=== PATIENT | female | born 1965 | race Caucasian/White ===

== ENCOUNTER → 2017-05-20 | Day surgery (SDC) | payer BC ==
[2017-05-20 11:03] VITALS: RESP 16; BMI 25.2
[2017-05-20 12:38] VITALS: BP 124/76; PULSE 86; TEMP 98.2
--- NOTE | 2017-05-20 13:05 | USB ---
EXAMINATION TYPE: US breast aspiration single RT DATE OF EXAM: 05/20/2017 COMPARISON: 05/16/2017 CLINICAL HISTORY: R92.8 Abnormal Mammogram. Prior to the procedure informed consent and a formal timeout were performed. Localization of the complicated cystic mass at the 10:00 position in the right breast was performed as it measured 1.3 x 1.2 x 1.3 cm containing minimal internal echoes. The patient describes this as a painful area and aspiration was subsequently performed. The area was sterilely prepped and draped. 10 cc of lidocaine was utilized to anesthetize the skin and subcutaneous tissues up to the mass. An 18-gauge spinal needle was inserted into the cyst and a partially 2 cc of brownish thick fluid was aspirated with collapse of the cyst entirely. Post procedural marker clip was left at the site of aspiration. Sample was sent to pathology for analysis. Hemostasis was achieved and the patient tolerated the procedure well. IMPRESSION: Successful ultrasound-guided aspiration of collapse of a complicated right breast cyst with 2 cc of brown thick fluid sent to the laboratory for analysis. Pathology pending. Pathology Results: Benign BREAST, RIGHT, FINE NEEDLE ASPIRATE: PREDOMINANTLY ACUTE INFLAMMATORY CELLS WITH SCATTERED MACROPHAGES AND RARE APOCRINE CELLS. Recommendation Follow up ultrasound of the right breast in 6 months. EARNESTINED
== END ==
LOC: RADUSWWP 10:34
PROVIDERS: ATTEND Internal Medicine
DX: N60.01 Solitary cyst of right breast (principal); R92.8 Other abnormal and inconclusive findings on diagnostic imaging of breast
CPT/HCPCS: 19000; 88108; 88305; 76942; A4648; J2001

== ENCOUNTER 2019-05-10 13:32 | Emergency (ER) | payer BC ==
[2019-05-10] MEDS ORDERED: IPRATROPIUM-ALBUTEROL 3 ML NEB INHALATION STA (14:14)
--- NOTE | 2019-05-10 14:30 | ED ---
General Adult HPI - General Chief complaint: Upper Respiratory Infection Stated complaint: Cough, sore throat Time Seen by Provider: 05/10/19 13:38 Source: patient, RN notes reviewed Mode of arrival: ambulatory Limitations: no limitations - History of Present Illness Initial comments: 54-year-old female without any significant past medical history presents for cough. Patient has had a cough for about 2 days. States that yesterday she had a sore throat but that has improved. Today her cough is worsening and she feels short of breath. States she often gets bronchitis around this time. Saw her primary care provider who gave her a reading treatment and sent her to the emergency department for a chest x-ray. Patient does admit to mild shortness of breath with this. Denies any chest pain. Patient denies any COPD asthma or smoking history. Patient has no other complaints at this time including chest pain, abdominal pain, nausea or vomiting, headache, or visual changes. - Related Data Home Medications Medication Instructions Recorded Confirmed ALPRAZolam [Xanax] 1 tab PO HS 05/18/17 05/20/17 Lisdexamfetamine Dimesylate 1 tab PO DAILY 05/18/17 05/20/17 [Vyvanse] Previous Rx's Medication Instructions Recorded Albuterol Inhaler [Ventolin Hfa 1 - 2 puff INHALATION Q6HR PRN #1 05/10/19 Inhaler] inhaler Azithromycin [Zithromax Z-pack] 250 mg PO DIRECTED #6 tab 05/10/19 Benzonatate [Tessalon Perles] 200 mg PO Q8H PRN #15 capsule 05/10/19 predniSONE 50 mg PO DAILY #5 tablet 05/10/19 Allergies Allergy/AdvReac Type Severity Reaction Status Date / Time No Known Allergies Allergy Verified 05/10/19 13:35 Review of Systems ROS Statement: Those systems with pertinent positive or pertinent negative responses have been documented in the HPI. ROS Other: All systems not noted in ROS Statement are negative. Past Medical History Past Medical History: No Reported History History of Any Multi-Drug Resistant Organisms: None Reported Past Surgical History: Tubal Ligation Past Anesthesia/Blood Transfusion Reactions: No Reported Reaction Past Psychological History: No Psychological Hx Reported Smoking Status: Light tobacco smoker Past Alcohol Use History: Occasional Past Drug Use History: None Reported General Exam Limitations: no limitations General appearance: alert, in no apparent distress Head exam: Present: atraumatic, normocephalic, normal inspection Eye exam: Present: normal appearance, PERRL, EOMI. Absent: scleral icterus, conjunctival injection, periorbital swelling ENT exam: Present: normal exam, normal oropharynx, mucous membranes moist, TM's normal bilaterally, normal external ear exam Neck exam: Present: normal inspection, full ROM. Absent: tenderness, meningismus, lymphadenopathy Respiratory exam: Present: wheezes (mild wheezing), decreased breath sounds (diminished breath sounds). Absent: respiratory distress, rales, rhonchi, stridor Cardiovascular Exam: Present: regular rate, normal rhythm, normal heart sounds. Absent: systolic murmur, diastolic murmur, rubs, gallop, clicks Neurological exam: Present: alert, oriented X3 Psychiatric exam: Present: normal affect, normal mood Course Vital Signs 05/10/19 05/10/19 05/10/19 13:33 14:32 14:45 Temperature 97.4 F L Pulse Rate 89 85 80 Respiratory 22 Rate Blood Pressure 127/70 O2 Sat by Pulse 99 Oximetry Medical Decision Making - Medical Decision Making 54-year-old female without any significant past medical history and a surgical history of tubal ligation presents to the emergency department for a chief complaint of cough. Patient has had a cough for 2 days. States she usually gets bronchitis around this time. States she does feel somewhat short of breath as well. Denies any chest pain. Vitals are stable. Patient is 99% on room air within normal heart rate. On examination patient does have diminished lung sounds bilaterally with minimal wheezing. She is not in any respiratory distress but is noted to be coughing with a dry cough. Chest x-ray was obtained to evaluate for pneumonia which showed no acute process. Patient was given 2 breathing treatments here in the emergency department and did have some improvement of symptoms. Lung sounds have increased. At this time patient is stable to follow up outpatient. Patient will be given steroids to start tomorrow as she had IM injection of steroids at her primary care providers today. She will also be given azithromycin to cover for any atypical pneumonia developing as well as inhaler. Discussed that if she has worsening symptoms and is not improving she needs to return here to the emergency department. She does agree with this. Disposition Clinical Impression: Cough Disposition: ADMITTED IP TO THIS HOSP Condition: Good Instructions (If sedation given, give patient instructions): Upper Respiratory Infection (ED) Additional Instructions: Please take antibiotic, cough drops, and inhaler starting today. Take steroids starting tomorrow. If you're having worsening symptoms return immediately to the emergency department. Otherwise follow-up with primary care in 1-2 days. Prescriptions: predniSONE 50 mg PO DAILY #5 tablet Benzonatate [Tessalon Perles] 200 mg PO Q8H PRN #15 capsule PRN Reason: Cough Albuterol Inhaler [Ventolin Hfa Inhaler] 1 - 2 puff INHALATION Q6HR PRN #1 inhaler PRN Reason: Shortness Of Breath Azithromycin [Zithromax Z-pack] 250 mg PO DIRECTED #6 tab Is patient prescribed a controlled substance at d/c from ED?: No Referrals: Jayashree Howard MD [Primary Care Provider] - 1-2 days Time of Disposition: 15:23
--- NOTE | 2019-05-10 15:06 | XR ---
EXAMINATION TYPE: XR chest 2V DATE OF EXAM: 05/10/2019 COMPARISON: NONE TECHNIQUE: PA and lateral views submitted. HISTORY: Cough FINDINGS: The lungs are clear and there is no pneumothorax, pleural effusion, or focal pneumonia. No overt fa ilure. IMPRESSION: 1. No acute process.
[2019-05-10 15:44] VITALS: BP 104/67; PULSE 87; RESP 18; TEMP 100.7
== END 2019-05-10 15:44 | disposition other institution (70) ==
LOC: EC 13:32
DX: R05 Cough (principal); R06.02 Shortness of breath; R06.2 Wheezing; J98.4 Other disorders of lung; F17.210 Nicotine dependence, cigarettes, uncomplicated; Z98.51 Tubal ligation status
CPT/HCPCS: 71046; 94640; 99284

== ENCOUNTER → 2019-06-07 | Outpatient (CLI) | payer BC ==
--- NOTE | 2019-06-08 13:50 | MM ---
Reason for exam: screening (asymptomatic). Last mammogram was performed 2 years and 1 month ago. History: Patient is postmenopausal. Family history of breast cancer in maternal grandmother at age 68, breast cancer in aunt at age 68, and breast cancer in maternal cousin. Benign US breast aspiration single RT of the right breast, May 20, 2017. Took hormonal contraceptives for 10 years. Physical Findings: A clinical breast exam by your physician is recommended on an annual basis and results should be correlated with mammographic findings. MG 3D Screening Mammo W/Cad Bilateral CC and MLO view(s) were taken. Prior study comparison: May 16, 2017, bilateral MG 3d diag mammo w/cad [facility]. June 14, 2015, bilateral MG screening mammo w CAD. The breast tissue is heterogeneously dense. This may lower the sensitivity of mammography. Previous mammotome biopsy in the right breast. No significant changes when compared with prior studies. ASSESSMENT: Benign, BI-RAD 2 RECOMMENDATION: Routine screening mammogram of both breasts in 1 year.
== END | disposition home or self-care (01) ==
LOC: RADMAMWWP 13:16
PROVIDERS: ATTEND Internal Medicine
DX: Z12.31 Encounter for screening mammogram for malignant neoplasm of breast (principal)
CPT/HCPCS: 77063; 77067

== ENCOUNTER → 2022-03-25 | Outpatient (CLI) | payer BC ==
--- NOTE | 2022-03-26 07:27 | MM ---
Reason for Exam: Screening (asymptomatic). Last mammogram was performed 2 year(s) and 10 month(s) ago. Patient History: Menarche at age 12. First Full-Term at age 26. Postmenopausal. Patient used Hormonal Contraceptives for 10 years. 05/20/2017, Benign Cyst Aspiration on the right side. Maternal grandmother had breast cancer, age 68. Maternal cousin had breast cancer. Maternal aunt had breast cancer, age 68. Risk Values: Sheron 5 year model risk: 1.5%. NCI Lifetime model risk: 8.5%. Prior Study Comparison: 06/07/2012 Bilateral Screening Mammogram, [facility]. 06/14/2015 Bilateral Screening Mammogram, [facility]. 05/16/2017 Bilateral Diagnostic Mammogram, [facility]. 06/07/2019 Bilateral Screening Mammogram, [facility]. Tissue Density: The breast tissue is heterogeneously dense. This may lower the sensitivity of mammography. Findings: Analyzed By CAD. Stable mammotome biopsy clip in the right breast upper outer aspect. There is no suspicious group of microcalcifications or new suspicious mass in either breast. Overall Assessment: Benign, BI-RAD 2 Management: Screening Mammogram of both breasts in 1 year. A clinical breast exam by your physician is recommended on an annual basis and results should be correlated with mammographic findings. Electronically signed and approved by: Jake Franco M.D.
== END | disposition home or self-care (01) ==
LOC: RADMAMWWP 07:26
PROVIDERS: ATTEND Internal Medicine
DX: Z12.31 Encounter for screening mammogram for malignant neoplasm of breast (principal); Z78.0 Asymptomatic menopausal state; Z80.3 Family history of malignant neoplasm of breast
CPT/HCPCS: 77063; 77067

== ENCOUNTER 2023-08-03 12:27 | Emergency (ER) | payer BC ==
--- NOTE | 2023-08-03 12:46 | ED ---
General Adult HPI <Isac Wang - Last Filed: 08/03/23 12:46> <Jose Antonio Fleming - Last Filed: 08/25/23 21:25> - General Stated complaint: chest/back pain Time Seen by Provider: 08/03/23 12:45 - History of Present Illness Initial comments: 58-year-old female presents to the ED with a chief complaint of chest tightness. [place] at the airport while she was walking noticed some tightness around her chest. Since onset, reports worsening of this sensation. Patient denies being on hormones. Denies tobacco use. (Isac Wang) - Related Data Home Medications Medication Instructions Recorded Confirmed Lisdexamfetamine Dimesylate 50 mg PO DAILY 05/18/17 08/03/23 [Vyvanse] ALPRAZolam [Xanax] 0.25 - 0.5 mg PO BID PRN 08/03/23 08/03/23 Albuterol Inhaler [Ventolin Hfa 1 - 2 puff INHALATION RT-Q6H PRN 08/03/23 08/03/23 Inhaler] buPROPion XL [Wellbutrin XL] 150 mg PO DAILY 08/03/23 08/03/23 buPROPion XL [Wellbutrin XL] 300 mg PO DAILY 08/03/23 08/03/23 Allergies Allergy/AdvReac Type Severity Reaction Status Date / Time No Known Allergies Allergy Verified 08/03/23 20:02 Review of Systems ROS Other: All systems not noted in ROS Statement are negative. <Isac Wang - Last Filed: 08/03/23 12:46> ROS Other: All systems not noted in ROS Statement are negative. <Jose Antonio Fleming - Last Filed: 08/25/23 21:25> ROS Statement: Those systems with pertinent positive or pertinent negative responses have been documented in the HPI. Past Medical History Past Medical History: No Reported History History of Any Multi-Drug Resistant Organisms: None Reported Past Surgical History: Tubal Ligation Past Anesthesia/Blood Transfusion Reactions: No Reported Reaction Past Psychological History: No Psychological Hx Reported Past Alcohol Use History: Occasional Past Drug Use History: None Reported <Isac Wang - Last Filed: 08/03/23 12:46> General Exam <Isac Wang - Last Filed: 08/03/23 12:46> Limitations: no limitations General appearance: alert, in no apparent distress Head exam: Present: atraumatic, normocephalic Eye exam: Present: normal appearance. Absent: scleral icterus, conjunctival in jection ENT exam: Present: normal oropharynx Neck exam: Present: normal inspection Respiratory exam: Present: normal lung sounds bilaterally. Absent: respiratory distress, wheezes, rales, rhonchi, stridor Cardiovascular Exam: Present: normal rhythm, tachycardia, normal heart sounds. Absent: systolic murmur, diastolic murmur, rubs, gallop GI/Abdominal exam: Present: soft. Absent: distended, tenderness, guarding, rebound, rigid, mass Extremities exam: Present: normal inspection, normal capillary refill. Absent: pedal edema, calf tenderness Back exam: Present: normal inspection. Absent: CVA tenderness (R), CVA tende rness (L) Neurological exam: Present: alert Skin exam: Present: warm, dry, intact, normal color. Absent: rash <Jose Antonio Fleming - Last Filed: 08/25/23 21:25> - General Exam Comments Initial Comments: Visual Physical Exam Vital signs reviewed General: Well-appearing, nontoxic, no acute distress. Head: Normocephalic, atraumatic Eyes: PERRLA, EOMI ENT: Airway patent Chest: Nonlabored breathing Skin: No visual rash, normal skin tone Neuro: Alert and oriented 3 Musculoskeletal: No gross abnormalities (Isac Wang) Course Vital Signs 08/03/23 08/03/23 08/03/23 12:42 19:19 20:00 Temperature 98 F Pulse Rate 121 H 85 79 Respiratory 18 20 18 Rate Blood Pressure 168/82 144/88 135/85 O2 Sat by Pulse 98 96 98 Oximetry 08/03/23 08/03/23 21:00 22:35 Temperature 98.0 F Pulse Rate 82 80 Respiratory 14 18 Rate Blood Pressure 91/58 147/94 O2 Sat by Pulse 96 98 Oximetry EKG Findings - EKG Results: EKG: interpreted by ERMD, sinus rhythm, normal axis, normal QRS, normal ST/T EKG shows: tachycardia (Rate 105 bpm) <Jose Antonio Fleming - Last Filed: 08/25/23 21:25> Medical Decision Making <Isac Wang - Last Filed: 08/03/23 12:46> - Lab Data Result diagrams: 08/03/23 12:49 08/03/23 12:49 <Jose Antonio Fleming - Last Filed: 08/25/23 21:25> - Medical Decision Making Quicknote portion performed. Signed Isac Wang PA-C (Isac Wang) The patient had chest x-ray which I interpreted as negative for acute infiltrate, pneumothorax, congestive heart failure The patient had CT angiogram of the chest which I interpreted as negative for acute pulmonary embolism. Was pt. sent in by a medical professional or institution (, PA, TOOLMAN, urgent care, hospital, or fdc...) When possible be specific @ -[No] Did you speak to anyone other than the patient for history (EMS, parent, family, police, friend...)? What history was obtained from this source @ -[No] Did you review nursing and triage notes (agree or disagree)? Why? @ -[I reviewed and agree with nursing and triage notes] Were old charts reviewed (outside hosp., previous admission, EMS record, old EKG, old radiological studies, urgent care reports/EKG's, fdc records)? Report findings @ -[No old charts were reviewed] Differential Diagnosis (chest pain, altered mental status, abdominal pain women, abdominal pain men, vaginal bleeding, weakness, fever, dyspnea, syncope, headache, dizziness, GI bleed, back pain, seizure, CVA, palpatations, mental health, musculoskeletal)? @ -[Differential Chest Pain: Stable Angina, Unstable Angina, STEMI, NSTEMI Aortic Dissection, Pneumothorax, Musculoskeletal, Esophageal Spasm GERD, Cholecystitis, Pancreatitis, Zoster, this is not meant to be an all-inclusive list. EKG interpreted by me (3pts min.). @ -[I interpreted As above] X-rays interpreted by me (1pt min.). @ -[I interpreted as above CT interpreted by me (1pt min.). @ -[I interpreted as above U/S interpreted by me (1pt. min.). @ -[None done] What testing was considered but not performed or refused? (CT, X-rays, U/S, labs)? Why? @ -[None] What meds were considered but not given or refused? Why? @ -[None] Did you discuss the management of the patient with other professionals (professionals i.e. , PA, TOOLMAN, lab, RT, psych nurse, social work manager, real estate clerk, teacher, campus safety officer, case monitor)? Give summary @ -[No] Was smoking cessation discussed for >3mins.? @ -[No] Was critical care preformed (if so, how long)? @ -[No] Were there social determinants of health that impacted care today? How? (Homelessness, low income, unemployed, alcoholism, drug addiction, transportation, low edu. Level, literacy, decrease access to med. care, detention, rehab)? @ -[No] Was there de-escalation of care discussed even if they declined (Discuss DNR or withdrawal of care, Hospice)? DNR status @ -[No] What co-morbidities impacted this encounter? (DM, HTN, Smoking, COPD, CAD, Cancer, CVA, ARF, Chemo, Hep., AIDS, mental health diagnosis, sleep apnea, morbid obesity)? @ -[None] Was patient admitted / discharged? Hospital course, mention meds given and route, prescriptions, significant lab abnormalities, going to OR and other pertinent info. @ -[This patient is 58-year-old woman with chest pain and recent air travel. Patient is mildly tachycardic on ECG and therefore CT angiogram is ordered and negative. We discussed further care and follow-up as well as return parameters. Undiagnosed new problem with uncertain prognosis? @ -[No] Drug Therapy requiring intensive monitoring for toxicity (Heparin, Nitro, Insulin, Cardizem)? @ -[No] Were any procedures done? @ -[No] Diagnosis/symptom? @ -[Cute chest pain Sinus tachycardia Acute, or Chronic, or Acute on Chronic? @ -[Acute Uncomplicated (without systemic symptoms) or Complicated (systemic symptoms)? @ -[Complicated Side effects of treatment? @ -[No] Exacerbation, Progression, or Severe Exacerbation? @ -[No] Poses a threat to life or bodily function? How? (Chest pain, [place], [place], pneumonia, PE, COPD, DKA, ARF, appy, cholecystitis, CVA, Diverticulitis, Homicidal, Suicidal, threat to staff... and all critical care pts) @ -[No] (Jose Antonio Fleming) - Lab Data Lab Results 08/03/23 08/03/23 08/03/23 Range/Units 12:49 12:49 12:49 WBC 4.4 (3.8-10.6) k/uL RBC 4.62 (3.80-5.40) m/uL Hgb 14.0 (11.4-16.0) gm/dL Hct 41.2 (34.0-46.0) % MCV 89.2 (80.0-100.0) fL MCH 30.2 (25.0-35.0) pg MCHC 33.9 (31.0-37.0) g/dL RDW 12.7 (11.5-15.5) % Plt Count 181 (150-450) k/uL MPV 8.2 Neutrophils % 64 % Lymphocytes % 26 % Monocytes % 5 % Eosinophils % 2 % Basophils % 1 % Neutrophils # 2.9 (1.3-7.7) k/uL Lymphocytes # 1.2 (1.0-4.8) k/uL Monocytes # 0.2 (0-1.0) k/uL Eosinophils # 0.1 (0-0.7) k/uL Basophils # 0.0 (0-0.2) k/uL PT 10.9 (10.0-12.5) sec INR 1.0 (<1.2) APTT 23.3 (22.0-30.0) sec D-Dimer 0.29 (<0.60) mg/L FEU Sodium 141 (137-145) mmol/L Potassium 4.2 (3.5-5.1) mmol/L Chloride 105 (98-107) mmol/L Carbon Dioxide 24 (22-30) mmol/L Anion Gap 12 mmol/L BUN 14 (7-17) mg/dL Creatinine 0.84 (0.52-1.04) mg/dL Est GFR (CKD-EPI)AfAm 88 (>60 ml/min/1.73 sqM) Est GFR (CKD-EPI)NonAf 76 (>60 ml/min/1.73 sqM) Glucose 112 H (74-99) mg/dL Calcium 9.2 (8.4-10.2) mg/dL Magnesium 1.9 (1.6-2.3) mg/dL Total Bilirubin 0.7 (0.2-1.3) mg/dL AST 24 (14-36) U/L ALT 19 (4-34) U/L Alkaline Phosphatase 70 (38-126) U/L Troponin I (0.000-0.034) ng/mL Total Protein 6.9 (6.3-8.2) g/dL Albumin 4.4 (3.5-5.0) g/dL Urine Color Urine Appearance (Clear) Urine pH (5.0-8.0) Ur Specific [place] (1.001-1.035) Urine Protein (Negative) Urine Glucose (UA) (Negative) Urine Ketones (Negative) Urine Blood (Negative) Urine Nitrite (Negative) Urine Bilirubin (Negative) Urine Urobilinogen (<2.0) mg/dL Ur Leukocyte Esterase (Negative) Urine RBC (0-5) /hpf Urine WBC (0-5) /hpf Ur Squamous Epith Cells (0-4) /hpf 08/03/23 08/03/23 Range/Units 12:49 12:49 WBC (3.8-10.6) k/uL RBC (3.80-5.40) m/uL Hgb (11.4-16.0) gm/dL Hct (34.0-46.0) % MCV (80.0-100.0) fL MCH (25.0-35.0) pg MCHC (31.0-37.0) g/dL RDW (11.5-15.5) % Plt Count (150-450) k/uL MPV Neutrophils % % Lymphocytes % % Monocytes % % Eosinophils % % Basophils % % Neutrophils # (1.3-7.7) k/uL Lymphocytes # (1.0-4.8) k/uL Monocytes # (0-1.0) k/uL Eosinophils # (0-0.7) k/uL Basophils # (0-0.2) k/uL PT (10.0-12.5) sec INR (<1.2) APTT (22.0-30.0) sec D-Dimer (<0.60) mg/L FEU Sodium (137-145) mmol/L Potassium (3.5-5.1) mmol/L Chloride (98-107) mmol/L Carbon Dioxide (22-30) mmol/L Anion Gap mmol/L BUN (7-17) mg/dL Creatinine (0.52-1.04) mg/dL Est GFR (CKD-EPI)AfAm (>60 ml/min/1.73 sqM) Est GFR (CKD-EPI)NonAf (>60 ml/min/1.73 sqM) Glucose (74-99) mg/dL Calcium (8.4-10.2) mg/dL Magnesium (1.6-2.3) mg/dL Total Bilirubin (0.2-1.3) mg/dL AST (14-36) U/L ALT (4-34) U/L Alkaline Phosphatase (38-126) U/L Troponin I <0.012 (0.000-0.034) ng/mL Total Protein (6.3-8.2) g/dL Albumin (3.5-5.0) g/dL Urine Color Colorless Urine Appearance Clear (Clear) Urine pH 6.5 (5.0-8.0) Ur Specific [place] >1.050 H (1.001-1.035) Urine Protein Negative (Negative) Urine Glucose (UA) Negative (Negative) Urine Ketones 1+ H (Negative) Urine Blood Small H (Negative) Urine Nitrite Negative (Negative) Urine Bilirubin Negative (Negative) Urine Urobilinogen <2.0 (<2.0) mg/dL Ur Leukocyte Esterase Negative (Negative) Urine RBC 3 (0-5) /hpf Urine WBC 2 (0-5) /hpf Ur Squamous Epith Cells 1 (0-4) /hpf Disposition <Isac Wang - Last Filed: 08/03/23 12:46> Is patient prescribed a controlled substance at d/c from ED?: No <Jose Antonio Fleming - Last Filed: 08/25/23 21:25> Clinical Impression: Chest pain Disposition: HOME SELF-CARE Condition: Good Instructions (If sedation given, give patient instructions): Chest Pain (ED) Referrals: Jayashree Howard MD [Primary Care Provider] - 1-2 days
[2023-08-03 13:31] LABS: Basophils % (A) 1 %; Eosinophils # (A) 0.1 k/uL (0-0.7); Eosinophils % (A) 2 %; HCT 41.2 % (34.0-46.0); Lymphocytes # (A) 1.2 k/uL (1.0-4.8); Lymphocytes % (A) 26 %; MCH 30.2 pg (25.0-35.0); MCHC 33.9 g/dL (31.0-37.0); MCV 89.2 fL (80.0-100.0); Mean Platelet Volume 8.2; Monocytes # (A) 0.2 k/uL (0-1.0); Monocytes % (A) 5 %; Neutrophils # (A) 2.9 k/uL (1.3-7.7); Neutrophils % (A) 64 %; Platelet Count 181 k/uL (150-450); RBC 4.62 m/uL (3.80-5.40); RDW 12.7 % (11.5-15.5); WBC 4.4 k/uL (3.8-10.6)
[2023-08-03 13:48] LABS: ALT 19 U/L (4-34); AST 24 U/L (14-36); African American GFR (CKD) 88 (>60 ml/min/1.73 sqM); Albumin 4.4 g/dL (3.5-5.0); Alkaline Phosphatase 70 U/L (38-126); Anion Gap 12 mmol/L; Blood Urea Nitrogen 14 mg/dL (7-17); Calcium 9.2 mg/dL (8.4-10.2); Carbon Dioxide 24 mmol/L (22-30); Chloride 105 mmol/L (98-107); Glucose 112 mg/dL (74-99); Magnesium 1.9 mg/dL (1.6-2.3); Non-African American GFR(CKD) 76 (>60 ml/min/1.73 sqM); Potassium 4.2 mmol/L (3.5-5.1); Sodium 141 mmol/L (137-145); Total Bilirubin 0.7 mg/dL (0.2-1.3); Total Protein 6.9 g/dL (6.3-8.2)
[2023-08-03 13:54] LABS: Partial Thromboplastin Time 23.3 sec (22.0-30.0); Prothrombin Time 10.9 sec (10.0-12.5)
--- NOTE | 2023-08-03 14:17 | XR ---
EXAMINATION TYPE: XR chest 2V DATE OF EXAM: 08/03/2023 1:47 PM CLINICAL INDICATION:Female, 58 years old with history of Chest Pain; [facility] COMPARISON: Chest radiographs from 05/10/2019 TECHNIQUE: XR chest 2V Frontal and lateral views of the chest. FINDINGS: Lungs/Pleura: There is no evidence of pleural effusion, focal consolidation, or pneumothorax. Pulmonary vascularity: Unremarkable. Heart/mediastinum: Cardiomediastinal silhouette is unremarkable. Musculoskeletal: No acute osseous pathology. IMPRESSION: No acute cardiopulmonary disease/process.
[2023-08-03 21:23] LABS: Appearance,Urine Clear (Clear); Bilirubin,Urine Negative (Negative); Blood,Urine Small (Negative); Color,Urine Colorless; Glucose,Urine (UA) Negative (Negative); Ketones,Urine 1+ (Negative); Leukocyte Esterase,Urine Negative (Negative); Nitrite,Urine Negative (Negative); PH, Urine 6.5 (5.0-8.0); Protein,Urine Negative (Negative); RBC,Urine 3 /hpf (0-5); Squamous Epithelial Cell,Urine 1 /hpf (0-4); Urobilinogen,Urine <2.0 mg/dL (<2.0); WBC,Urine 2 /hpf (0-5)
[2023-08-03 21:25] LABS: Specific Gravity,Urine >1.050 (1.001-1.035)
--- NOTE | 2023-08-03 22:07 | CT ---
EXAMINATION TYPE: CT chest angio for PE CT DLP: 250.2 mGycm, Automated exposure control for dose reduction was used. DATE OF EXAM: 08/03/2023 7:22 PM COMPARISON: Same day chest x-ray CLINICAL INDICATION:Female, 58 years old with history of chest pain, possible PE; chest/back pain, po ssible PE TECHNIQUE/CONTRAST: CTA scan of the thorax is performed with IV Contrast, patient injected with 65ml mL of Isovue 370, CA P images are created and reviewed these are created on a separate workstation.. FINDINGS: Pulmonary Artery: There is no evidence for a filling defect within the pulmonary vasculature to sugge st acute pulmonary embolism. The pulmonary artery is of normal size. Heart: Heart is within normal limits for size. Vasculature: No evidence of aortic aneurysm. Mediastinum: No gross evidence of adenopathy. Airway: Large airways are patent. Lower neck: No significant findings. Soft Tissues: Unremarkable. Lungs/Pleura: No evidence of focal consolidation, pleural effusion or pneumothorax. Musculoskeletal: No acute osseous abnormalities Upper Abdomen: No significant findings. IMPRESSION: No evidence of pulmonary embolism. Lungs are clear.
[2023-08-03 22:56] VITALS: BP 147/94; PULSE 80; RESP 18; TEMP 98
== END 2023-08-03 22:35 | disposition home or self-care (01) ==
LOC: EC 12:27
DX: R07.89 Other chest pain (principal); R00.0 Tachycardia, unspecified
CPT/HCPCS: 36415; 93005; 85379; 80053; 83735; 84484; 85025; 85610; 85730; 81001; 71046; 71275; 99285; Q9967

== ENCOUNTER 2024-03-30 11:43 | Emergency (ER) | payer BC ==
[2024-03-30] MEDS ORDERED: ASPIRIN 325 MG TAB ONE (13:21)
[2024-03-30] MEDS ORDERED: ALPRAZolam 0.5 MG TAB ONE (13:27)
--- NOTE | 2024-05-07 14:43 | XR ---
[facility] - Radiology Report Patient: Deann Granger Ordering Physician: Unknown, Unknown ID: [id number] Phone, Pager: Phone: N/A Pager: N/A : 1965 Age/Gender: 59Y, F Primary Location: N/A Procedure: XR CHEST 2V Study Date: 03/30/2024 2:13:00 PM EXAMINATION TYPE: XR chest 2V DATE OF EXAM: 03/30/2024 COMPARISON: NONE HISTORY: Shortness of breath TECHNIQUE: Frontal and lateral views of the chest are obtained. FINDINGS: Scattered senescent parenchymal changes noted. Hyperinflation compatible with COPD. No evidence for infiltrate. No evidence for atelectasis. Heart size is stable. Mediastinal structures are stable and grossly unremarkable. No evidence for hilar prominence. Degenerative changes dorsal spine. IMPRESSION: 1. No evidence for acute pulmonary disease.
== END 2024-03-30 16:47 | disposition home or self-care (01) ==
LOC: EC 11:43
CPT/HCPCS: 71046; 93005; 99285